=== PATIENT | male | born 1940 | race Caucasian/White ===

== ENCOUNTER 2019-07-11 09:39 | Day surgery (SDC) | payer MEDICARE ==
[~2019-07-11 09:39] MED LIST: BUPIVACAINE HCL 0.75% INJ/PF (7.5 MG/1 ML) 10 ML SDV OD PRN; KETOROLAC TROMETHAMINE 0.45% 4 DROP/0.4 ML DROPERETTE OD PRN; LIDOCAINE 1% INJ-PF (10 MG/ML) 30 ML SDV ONE; LIDOCAINE 4% INJ/PF (40 MG/ML) 5 ML AMPUL OD PRN
[2019-07-11] MEDS: CYCLOPENTOLATE 0.2%/PHENYLEPHRINE 1% OPH SOLN 2 ML OD PRN ×3 (10:27→10:47)
[2019-07-11] MEDS: TROPICAMIDE 1% OPH SOLN 15 ML OD PRN ×3 (10:27→10:47)
[2019-07-11] MEDS: BESIFLOXACIN HCL 0.6% OPH SUSP 5 ML BOTTLE OD PRN ×4 (10:27→11:54)
[2019-07-11] MEDS: TETRACAINE HCL 0.5% OPH SOLN 4 ML OD PRN ×3 (10:28→11:20)
[2019-07-11] MEDS ORDERED: MIDAZOLAM 2 MG/2 ML INJ ONE (10:52)
[2019-07-11] MEDS: CHONDR SU A NA/HYALUR INTRAOC KIT (SURGICARE) ONE ×2 (11:36→11:38)
[2019-07-11] MEDS: EPINEPHRINE INJ/PF 1 MG/1 ML AMPULE ONE ×2 (11:36→11:38)
[2019-07-11] MEDS: LIDOCAINE 1%/PHENYLEPHRINE 1.5% 1 ML VIAL ONE ×2 (11:36→11:38)
[2019-07-11] MEDS: DORZOLAMIDE HCL 2%/TIMOLOL MALEAT 0.5% OPH SOLN 10 ML OD PRN ×2 (11:54)
--- NOTE | 2019-07-11 12:43 | Operative Report ---
Operative Report-[facility] Operative Report: DATE OF SURGERY: 07/11/2019 PREOPERATIVE DIAGNOSIS: 1. CATARACT, RIGHT EYE 2. PUPIL MIOSIS, RIGHT EYE POSTOPERATIVE DIAGNOSIS: 1. CATARACT, RIGHT EYE 2. PUPIL MIOSIS, EIGHT EYE PROCEDURE PERFORMED: COMPLEX CATARACT EXTRACTION WITH INTRAOCULAR LENSES, RIGHT EYE Intraocular Lens Model: SN 60 WF 21.5 Total Phaco Time: 13.28 CDE SURGEON: ELEUTERIO NAVARRO MD ANESTHESIA: Topical with MAC plus intraocular phenylephrine and lidocaine INDICATIONS FOR SURGERY: Difficulty reading small print PROCEDURE: The patient was brought to the operating room placed on operating table. Topical anesthesia was administered. This consisted of instrument wipe pledgets soaked in a solution of 4% Xylocaine mixed with 0.75% Marcaine in a 1:2 ratio. A 2 x 1 cm pledget was placed in the superior fornix. A 1 x 1 cm pledget was placed in the inferior fornix. The eye was patched for 5 minutes. The patch and pledgets were removed. The eye was sterilely prepped and draped in the usual manner. A lid speculum was placed in the eye. A 4-0 black silk suture was placed around the superior and inferior rectus muscle to use as traction. A conjunctival peritomy was made at the 10 o'clock position. Hemostasis was obtained with bipolar cautery. A posterior limbal groove was created using a crescent knife and dissected anteriorly towards the cornea. Sharp point blade was used to create a paracentesis site at the 2 o'clock position. A 2.4 mm keratome was used into the anterior chamber through the groove. Then 0.5 mL of 1% non-preserved lidocaine was injected into the anterior chamber. Viscoelastic was injected into the anterior chamber. Pupil dilation was approximately 4.5 mm. A Malyugin Ring was placed stabilizing the iris. An anterior capsulotomy was performed using Utrata forceps in a capsulorrhexis fashion. Hydrodissection and hydrodelineation was performed. Phacoemulsification was performed in the divide and conquer technique. Following this, that I/A unit was used to remove residual cortex. Viscoelastic was injected into the capsular bag. Intraocular lens were placed in the capsular bag. The Malyugin ring haptics were removed and the ring was removed from the eye. The I/A unit was used to remove residual viscoelastic. The wound was seen to be watertight under high and low pressure and no sutures were placed. The 4-0 black silk sutures and lid speculum were removed. The eye was shielded after Besivance, prednisolone and Cosopt drops were placed. The patient tolerated the procedure well and was sent to recovery room in good condition.
== END 2019-07-11 12:33 | disposition home or self-care (01) ==
LOC: SC 09:39
PROVIDERS: ATTEND Ophthalmology
DX: H25.811 Combined forms of age-related cataract, right eye (principal); H57.03 Miosis; Z96.1 Presence of intraocular lens; H40.1231 Low-tension glaucoma, bilateral, mild stage; J44.9 Chronic obstructive pulmonary disease, unspecified; E11.9 Type 2 diabetes mellitus without complications; Z79.84 Long term (current) use of oral hypoglycemic drugs; Z88.0 Allergy status to penicillin
CPT/HCPCS: 66982; 82962; V2632; J2250; J3490 ×5; A9270; J0171; J2370; 142